=== PATIENT | male | born 1955 | race African-American/Black ===

== ENCOUNTER 2018-06-05 15:48 | Emergency (ER) | payer OTHER ==
[~2018-06-05] VITALS: Ht 189.2 cm; Wt 139.5 kg
[2018-06-05 15:57] VITALS: Ht 189.2 cm; Wt 139.5 kg
[2018-06-05] MEDS ORDERED: BAYER CHEWABLE81 MG PO (15:59)
[2018-06-05] MEDS ORDERED: HYDROCHLOROTHIA25 MG PO (16:00)
[2018-06-05] MEDS ORDERED: FUROSEMIDE20 MG PO (16:01)
[2018-06-05] MEDS ORDERED: ZANTAC300 MG PO (16:02)
[2018-06-05] MEDS ORDERED: HYDROCODON-ACE1 EA10 PO (16:03)
[2018-06-05] MEDS ORDERED: ZOLOFT25 MG PO (16:04)
[2018-06-05 17:07] LABS: BASOPHILS 0.5 % (0-2); EOSINOPHILS 4.3 % (0-7); HEMATOCRIT 38.2 % (42.0-54.0); HEMOGLOBIN 12.7 g/dL (13.5-17.5); IMMATURE GRANULOCYTES 0.2 % (0-5); INR 1.13 (0.85-1.17); LYMPHOCYTES 28.6 % (15-50); MCH 25.6 pg (26.0-34.0); MCHC 33.2 g/dL (31.0-37.0); MEAN PLATELET VOLUME 9.9 fL (7.4-10.4); MONOCYTES 7.3 % (2-11); NEUTROPHILS 59.1 % (40-80); PLATELET COUNT 216 10x3/uL (130-400); RBC 4.96 10x6/uL (4.20-6.10); RDW 16.5 % (11.5-14.5); WBC 6.1 10x3/uL (4.8-10.8)
[2018-06-05 17:12] LABS: ALBUMIN 3.6 g/dL (3.4-5.0); ALKALINE PHOSPHATASE 72 U/L (46-116); ALT (SGPT) 28 U/L (10-68); BILIRUBIN - TOTAL 0.75 mg/dL (0.2-1.3); CALC OSMOLALITY 279 mosm/kg (275-300); CALCIUM 8.6 mg/dL (8.5-10.1); CARBON DIOXIDE 25.7 mmol/L (21.0-32.0); CHLORIDE - SERUM 106 mmol/L (98-107); CREATININE - SERUM 1.2 mg/dL (0.6-1.3); GLUCOSE 99 mg/dL (74-106); POTASSIUM - SERUM 3.6 mmol/L (3.5-5.1); PROTEIN - SERUM 7.9 g/dL (6.4-8.2); SODIUM 141 mmol/L (136-145); UREA NITROGEN 11 mg/dL (7-18); eGFR NON AFRICAN AMERICAN 64 mL/min (90-120)
[2018-06-05 17:30] LABS: CKMB 1.5 U/L (0.0-3.6); CREATINE KINASE 210 UL (21-232); MAGNESIUM - SERUM 1.9 mg/dL (1.8-2.4)
[2018-06-05 17:34] LABS: TROPONIN-I 0.065 ng/mL (0.000-0.060)
[2018-06-05 18:00] VITALS: BP 165/95
== END 2018-06-05 19:06 | disposition home or self-care (01) ==
LOC: D.ER 15:48
PROVIDERS: Family Medicine
DX: R07.9 Chest pain, unspecified (principal); I11.0 Hypertensive heart disease with heart failure; I50.9 Heart failure, unspecified

== ENCOUNTER 2018-07-30 21:09 | Emergency (ER) | payer OTHER ==
[~2018-07-30] VITALS: Ht 189.2 cm; Wt 136.4 kg
[~2018-07-30 21:09] MED LIST: BAYER CHEWABLE81 MG PO; FUROSEMIDE20 MG PO; HYDROCHLOROTHIA25 MG PO; HYDROCODON-ACE1 EA10 PO; ZANTAC300 MG PO; ZOLOFT25 MG PO
[2018-07-30 21:21] VITALS: Ht 189.2 cm; Wt 136.4 kg
[2018-07-30 21:43] LABS: BASOPHILS 0.4 % (0-2); EOSINOPHILS 4.9 % (0-7); HEMATOCRIT 40.5 % (42.0-54.0); HEMOGLOBIN 13.4 g/dL (13.5-17.5); IMMATURE GRANULOCYTES 0.1 % (0-5); LYMPHOCYTES 37.4 % (15-50); MCH 25.9 pg (26.0-34.0); MCHC 33.1 g/dL (31.0-37.0); MCV 78.3 fL (80.0-100.0); MEAN PLATELET VOLUME 9.4 fL (7.4-10.4); MONOCYTES 7.5 % (2-11); NEUTROPHILS 49.7 % (40-80); PLATELET COUNT 187 10x3/uL (130-400); RBC 5.17 10x6/uL (4.20-6.10); RDW 16.6 % (11.5-14.5); WBC 7.5 10x3/uL (4.8-10.8)
[2018-07-30 22:02] LABS: ALBUMIN 3.6 g/dL (3.4-5.0); ALKALINE PHOSPHATASE 75 U/L (46-116); ALT (SGPT) 28 U/L (10-68); BILIRUBIN - TOTAL 0.46 mg/dL (0.2-1.3); CALC OSMOLALITY 281 mosm/kg (275-300); CALCIUM 8.7 mg/dL (8.5-10.1); CARBON DIOXIDE 23.4 mmol/L (21.0-32.0); CHLORIDE - SERUM 105 mmol/L (98-107); CREATININE - SERUM 1.3 mg/dL (0.6-1.3); GLUCOSE 140 mg/dL (74-106); POTASSIUM - SERUM 3.5 mmol/L (3.5-5.1); SODIUM 140 mmol/L (136-145); UREA NITROGEN 16 mg/dL (7-18); eGFR NON AFRICAN AMERICAN 59 mL/min (90-120)
[2018-07-30 22:13] LABS: CKMB 2.1 U/L (0.0-3.6); CREATINE KINASE 198 UL (21-232); TROPONIN-I 0.059 ng/mL (0.000-0.060)
--- NOTE | 2018-07-31 00:32 | NUR ---
DR VILLA NOTIFIED AND REVIEWED PT's BEHAVIOR AND ASSESSMENT RESULT, PT IS A LOW RISK PER DR VILLA. DR VILLA STATED TO GIVE RESOURCES TO PT AT TIME OF DISCHARGE. NO FURTHER ORDERS AT THIS TIME. RESOURCES REVIEWED WITH PT AND HE VERBALIZED UNDERSTANDING.
[2018-07-31 03:58] VITALS: BP 147/81
== END 2018-07-31 04:00 | disposition other institution (70) ==
LOC: D.ER 21:09
PROVIDERS: Family Medicine
DX: R07.9 Chest pain, unspecified (principal); I42.9 Cardiomyopathy, unspecified; E66.01 Morbid (severe) obesity due to excess calories